=== PATIENT | male | born 1990 | race Caucasian/White ===

== ENCOUNTER 2023-07-19 15:44 | Emergency (ER) | payer MEDICAID ==
[~2023-07-19] VITALS: Ht 177.8 cm; Wt 74.8 kg
[2023-07-19 16:03] VITALS: BP_SYST 113; PULSE 72; RESP 18; TEMP 97.4; O2SAT 99
[2023-07-19] MEDS ORDERED: IBUPROFEN 600 MG TABLET PO ONE (17:45)
[2023-07-19] MEDS ORDERED: BACITRACIN 1 GM OINT TP ONE (19:03)
[2023-07-19] MEDS ORDERED: IBUP-1969 PO (19:19)
[2023-07-19] MEDS ORDERED: CEPH-548 PO (19:19)
[2023-07-19] MEDS: cephALEXin 500 MG CAPSULE PO ONE (19:38)
[2023-07-19] MEDS: IBUPROFEN 600 MG TABLET PO ONE (19:40)
[2023-07-19 19:48] VITALS: BP_SYST 116; PULSE 86; RESP 20; TEMP 98.6; O2SAT 100
== END 2023-07-19 19:46 | disposition home or self-care (01) ==
LOC: SED 15:44
DX: L03.011 Cellulitis of right finger (principal); Z79.899 Other long term (current) drug therapy
CPT/HCPCS: 99283